=== PATIENT | female | born 1995 | race Caucasian/White ===

== ENCOUNTER 2017-09-25 19:40 | Emergency (ER) | payer SELFPAY ==
[~2017-09-25] VITALS: Ht 165.1 cm; Wt 64.9 kg
[2017-09-25] MEDS: IV NORMAL SALINE 500ML BAG 500 ML IV ONE (20:15)
[2017-09-25 20:24] LABS: BASO # 0.1 x10^3/uL (0.0-0.2); BASO % 1 % (0-3); EOS % 1 % (0-3); HEMATOCRIT 38.9 % (36.0-47.0); HEMOGLOBIN 12.7 g/dL (12.0-15.5); LYMPH # 2.1 x10^3/uL (1.0-4.8); LYMPH % 25 % (24-48); MEAN CORPUSCULAR HEMOGLOBIN 30 pg (25-35); MEAN CORPUSCULAR HGB CONC 33 g/dL (31-37); MEAN CORPUSCULAR VOLUME 91 fL (79-100); MONO % 7 % (0-9); NEUT % 67 % (31-73); PLATELET COUNT 244 x10^3/uL (140-400); RED BLOOD COUNT 4.29 x10^6/uL (3.50-5.40); RED CELL DISTRIBUTION WIDTH 13.3 % (11.5-14.5); WHITE BLOOD COUNT 8.7 x10^3/uL (4.0-11.0)
[2017-09-25 20:38] LABS: BARBITURATES NEG (NEG); BENZODIAZEPINES NEG (NEG); CANNABINOIDS POS (NEG); COCAINE NEG (NEG); METHADONE NEG (NEG); OPIATES NEG (NEG); PHENCYCLIDINE NEG (NEG)
[2017-09-25 20:48] LABS: CALCIUM 8.2 mg/dL (8.5-10.1); CREATININE 0.8 mg/dL (0.6-1.0); GFR 92.4; POTASSIUM 3.1 mmol/L (3.5-5.1)
[2017-09-25 20:50] LABS: ALBUMIN 4.3 g/dL (3.4-5.0); ALBUMIN/GLOBULIN RATIO 1.5 (1.0-1.7); TOTAL BILIRUBIN 0.4 mg/dL (0.2-1.0); TOTAL PROTEIN 7.1 g/dL (6.4-8.2)
[2017-09-25 21:14] VITALS: BP 98/50
--- NOTE | 2017-09-25 21:28 | PHYS DOC ---
Past Medical History Past Medical History: Anxiety, Bipolar, Depression Additional Past Medical Histor: BROKE LEFT FOOT AUG 2017 Alcohol Use: Heavy Drug Use: None Adult General Chief Complaint Chief Complaint: ALCOHOL INTOXICATION HPI HPI Patient is a 21 year old female brought by EMS with the complaint of altered mental status, intoxicated. History is from the patient's mother who is here with her. The patient had been at a local restaurant, she was in the bathroom vomiting profusely, someone called the patient's mother to tell her the patient was sick. The mother ran over there and found the patient in the back call, " she looked ". The patient had had "6 or 7 shots" of vodka. I believe that happened at someone's home prior to going to the restaurant. The patient was out partying with some friends. The patient is not able to contribute to the history whatsoever. Review of Systems Review of Systems Review of systems not able to be obtained because the patient is not able to answer questions Current Medications Current Medications Current Medications Medications (Trade) Dose Ordered Sig/Yolanda Start Time Stop Time Status Last Admin Dose Admin Sodium Chloride 500 ml @ 500 mls/hr 1X ONCE 09/25/17 20:15 09/25/17 21:14 DC 09/25/17 20:15 500 MLS/HR Allergies Allergies Allergies Coded Allergies Type Severity Reaction Last Updated Verified No Known Drug Allergies 09/25/17 No Physical Exam Physical Exam Constitutional: Well developed, well nourished, no acute distress, non-toxic appearance. Patient has her eyes open, she is able to say yes or no but is not able to answer any questions of significance. HENT: Normocephalic, atraumatic, bilateral external ears normal, oropharynx moist, no oral exudates, nose normal. [] Eyes: PERRLA, EOMI, conjunctiva normal, no discharge. [] Neck: Normal range of motion, no stridor. [] Cardiovascular:Heart rate regular rhythm, no murmur [] Lungs & Thorax: Bilateral breath sounds clear to auscultation [] Abdomen: Bowel sounds normal, soft, no tenderness, no masses, no pulsatile masses. [] Skin: Warm, dry, no erythema, no rash. [] Extremities: No tenderness, no cyanosis, no clubbing, ROM intact, no edema. [] Neurologic: Alert but has slowed responses, does appear intoxicated,, normal motor function, no focal deficits noted. [] Current Patient Data Vital Signs Vital Signs Date Time Temp Pulse Resp B/P (MAP) Pulse Ox O2 Delivery O2 Flow Rate FiO2 09/25/17 21:14 88 23 98/50 (66) 99 Room Air 09/25/17 19:55 97.5 97.5 Lab Values Laboratory Tests Test 09/25/17 19:50 09/25/17 19:55 09/25/17 19:57 White Blood Count 8.7 x10^3/uL (4.0-11.0) Red Blood Count 4.29 x10^6/uL (3.50-5.40) Hemoglobin 12.7 g/dL (12.0-15.5) Hematocrit 38.9 % (36.0-47.0) Mean Corpuscular Volume 91 fL (79-100) Mean Corpuscular Hemoglobin 30 pg (25-35) Mean Corpuscular Hemoglobin Concent 33 g/dL (31-37) Red Cell Distribution Width 13.3 % (11.5-14.5) Platelet Count 244 x10^3/uL (140-400) Neutrophils (%) (Auto) 67 % (31-73) Lymphocytes (%) (Auto) 25 % (24-48) Monocytes (%) (Auto) 7 % (0-9) Eosinophils (%) (Auto) 1 % (0-3) Basophils (%) (Auto) 1 % (0-3) Neutrophils # (Auto) 5.8 x10^3uL (1.8-7.7) Lymphocytes # (Auto) 2.1 x10^3/uL (1.0-4.8) Monocytes # (Auto) 0.6 x10^3/uL (0.0-1.1) Eosinophils # (Auto) 0.1 x10^3/uL (0.0-0.7) Basophils # (Auto) 0.1 x10^3/uL (0.0-0.2) Sodium Level 141 mmol/L (136-145) Potassium Level 3.1 mmol/L (3.5-5.1) L Chloride Level 105 mmol/L (98-107) Carbon Dioxide Level 25 mmol/L (21-32) Anion Gap 11 (6-14) Blood Urea Nitrogen 11 mg/dL (7-20) Creatinine 0.8 mg/dL (0.6-1.0) Estimated GFR (Cockcroft-Gault) 92.4 BUN/Creatinine Ratio 14 (6-20) Glucose Level 88 mg/dL (70-99) Calcium Level 8.2 mg/dL (8.5-10.1) L Total Bilirubin 0.4 mg/dL (0.2-1.0) Aspartate Amino Transferase (AST) 13 U/L (15-37) L Alanine Aminotransferase (ALT) 18 U/L (14-59) Alkaline Phosphatase 62 U/L (46-116) Total Protein 7.1 g/dL (6.4-8.2) Albumin 4.3 g/dL (3.4-5.0) Albumin/Globulin Ratio 1.5 (1.0-1.7) Ethyl Alcohol Level 270 mg/dL (0-10) H Urine Opiates Screen Neg (NEG) Urine Methadone Screen Neg (NEG) Urine Barbiturates Neg (NEG) Urine Phencyclidine Screen Neg (NEG) Urine Amphetamine/Methamphetamine Pos (NEG) Urine Benzodiazepines Screen Neg (NEG) Urine Cocaine Screen Neg (NEG) Urine Cannabinoids Screen Pos (NEG) Urine Ethyl Alcohol Pos (NEG) POC Urine HCG, Qualitative Hcg negative (Negative) Laboratory Tests 09/25/17 19:50 Laboratory Tests 09/25/17 19:50 EKG EKG [] Radiology/Procedures Radiology/Procedures [] Course & Med Decision Making Course & Med Decision Making Pertinent Labs and Imaging studies reviewed. (See chart for details) 21-year-old female brought to the ED by EMS after she reportedly drinks 6 or 7 shots of vodka, vomited, and sounds like she passed out. On arrival here, she appears intoxicated, she does have her eyes open, she is able to nod and reply yes or no, she is maintaining her airway without difficulty. We will check some labs and give her a bag of fluids. Family is agreeable. Patient had a liter of IV fluids. Alcohol level CCLXX. Urine drug screen positive also for marijuana and amphetamine/methamphetamine. I rechecked the patient. She is sound asleep it does wake to gentle shaking and voice. She remains intoxicated in appearance but appropriate for her level of 270. I discussed the urine drug screen findings with the mother. The patient had a trial of ambulation. She ambulated to the restroom in the [place] with minimal assistance from the ED nursing staff and the patient's mother. The patient's mother plans to take her home tonight and will be watching her. She is comfortable with discharge of the patient. I believe she is stable for discharge. See instructions for plan. [] Dragon Disclaimer Dragon Disclaimer This electronic medical record was generated, in whole or in part, using a voice recognition dictation system. Departure Departure Impression: Primary Impression: Acute alcohol intoxication Additional Impressions: Positive urine drug screen Marijuana use Methamphetamine use Disposition: HOME, SELF-CARE Condition: STABLE Referrals: UNKNOWN PCP NAME (PCP) Patient Instructions: Alcohol Intoxication, [id number], Methamphetamine Abuse , Complications Additional Instructions: As we discussed, alcohol level 270, where as the legal limit to drive is 80. No driving for 24 hours due to this high alcohol level. Drink plenty of fluids such as clear liquids and Gatorade. Urine drug screen was positive for alcohol but also positive for amphetamine or methamphetamine and marijuana. The marijuana could have been tonight or another day. The amphetamine or methamphetamine could have been meth, could have been and ADD medication. It might have been something that was added to a marijuana cigarette. If substance abuse is a recurrent, chronic, or other significant problem, consider referral to substance abuse treatment. Your alcohol level was dangerously high. Ingesting high amounts of alcohol quickly can cause you to quit breathing. Stay with someone who can watch you until you are sober. Have someone help you walk so that you don't fall. Problem Qualifiers PILAR BERNARD MD Sep 25, 2017 21:28
== END 2017-09-25 21:47 | disposition home or self-care (01) ==
LOC: ER 19:40
DX: F10.129 Alcohol abuse with intoxication, unspecified (principal); R41.82 Altered mental status, unspecified; F31.9 Bipolar disorder, unspecified; F32.9 Major depressive disorder, single episode, unspecified; F12.90 Cannabis use, unspecified, uncomplicated; F15.90 Other stimulant use, unspecified, uncomplicated
CPT/HCPCS: 36415; 80053; 80307; 81025; 85025; 96360; 99284; G0480; J7040; G0479